=== PATIENT | male | born 1970 | race Caucasian/White ===

== ENCOUNTER 2019-02-17 13:34 | Inpatient (IN) | payer OTHER ==
[2019-02-17 15:50] VITALS: BMI 36.9
--- NOTE | 2019-02-17 16:24 | HP ---
COWS - Scale Resting Pulse: 1= [place] 81-100 Sweatin= Chills/Flushing Restless Observation: 1= Difficult to Sit Still Pupil Size: 1= Pupils >than Normal Bone or Joint Aches: 2= Severe Diffuse Aches Runny Nose/ Eye Tearin= Runny Nose/Eyes GI Upset > 30mins: 2= Nausea/Diarrhea Tremor Observation: 2= Slight Tremor Visible Yawning Observation: 2= >3x During Session Anxiety or Irritability: 2=Irritable/Anxious Goose Flesh Skin: 0=Smooth Skin COWS Score: 16 CIWA Score - Admission Criteria OASAS Guidelines: Admission for Medically Managed Detox: Requires at least one of the followin. CIWA greater than 12 2. Seizures within the past 24 hours 3. Delirium tremens within the past 24 hours 4. Hallucinations within the past 24 hours 5. Acute intervention needed for co occurring medical disorder 6. Acute intervention needed for co occurring psychiatric disorder 7. Severe withdrawal that cannot be handled at a lower level of care (continued vomiting, continued diarrhea, abnormal vital signs) requiring intravenous medication and/or fluids 8. Admission ROS [facility] - [facility] Chief Complaint: i need help to stop using heroin Allergies/Adverse Reactions: Allergies Allergy/AdvReac Type Severity Reaction Status Date / Time No Known Allergies Allergy Verified 02/17/19 15:36 History of Present Illness: this 48 years old male with heroin dependence,seeking detox,withdrawal symptom, last detox in [facility] in 2016 first visit to this facility asthma on albuterol inhaler of albuterol inhaler and symbicort and nebulizer , on prednisone no chest pain longest period of sobriety 10 years Exam Limitations: No Limitations - Ebola screening Have you traveled outside of the country in the last 21 days: No (N) Have you had contact with anyone from an Ebola affected area: No Do you have a fever: No - Review of Systems Constitutional: Chills, Loss of Appetite, Malaise, Night Sweats, Changes in sleep, Weakness EENT: reports: Nose Congestion Respiratory: reports: Other (asthma) Cardiac: reports: No Symptoms Reported GI: reports: Diarrhea, Nausea, Vomiting, Abdominal cramping : reports: No Symptoms Reported Musculoskeletal: reports: Back Pain, Joint Pain, Muscle Pain Integumentary: reports: Dryness Neuro: reports: Headache, Tremors Endocrine: reports: No Symptoms Reported Hematology: reports: No Symptoms Reported Psychiatric: reports: No Sypmtoms Reported, Judgement Intact, Mood/Affect Appropiate, Orientated x3 Other Systems: Reviewed and Negative Patient History - Patient Medical History Hx Anemia: No Hx Asthma: Yes (on albuterol inhaler,symbicort,bebulizer) Hx Chronic Obstructive Pulmonary Disease (COPD): No Hx Cancer: No Hx Cardiac Disorders: No Hx Congestive Heart Failure: No Hx Hypertension: Yes (on med) Hx Hypercholesterolemia: No Hx Pacemaker: No HX Cerebrovascular Accident: No Hx Seizures: No Hx Dementia: No Hx Diabetes: No Hx Gastrointestinal Disorders: No Hx Liver Disease: No Hx Genitourinary Disorders: No Hx Sexually Transmitted Disorders: No Hx Renal Disease (ESRD): No Hx Thyroid Disease: No Hx Human Immunodeficiency Virus (HIV): No (last 12/07 negative) Hx Hepatitis C: No Hx Depression: No Hx Suicide Attempt: No Hx Bipolar Disorder: No Hx Schizophrenia: No Other Medical History: no suicidal,no homicidal - Patient Surgical History Past Surgical History: No - PPD History Previous Implant?: Yes Documented Results: Negative w/o proof Implanted On Prior [facility] Admission?: No PPD to be Administered?: No - Smoking Cessation Smoking history: Never smoked - Substance & Tx. History Hx Alcohol Use: No Hx Substance Use: Yes Substance Use Type: Heroin Hx Substance Use Treatment: Yes ([facility] in 2016) - Substances abused Heroin Substance route: Inhalation Frequency: Daily Amount used: 8-9 BAGS Age of first use: 20 Date of last use: 02/16/19 Admission Physical Exam BHS - Vital Signs Vital Signs: Vital Signs - 24 hr 02/17/19 15:33 Temperature 98.0 F Pulse Rate 90 Respiratory 20 Rate Blood Pressure 160/94 - Physical General Appearance: Yes: Moderate Distress, Tremorous, Irritable, Sweating, Anxious HEENTM: Yes: Normal ENT Inspection, TEODORO, Pharynx Normal Respiratory: Yes: Wheezing Neck: Yes: Within Normal Limits, Supple, Trachea in good position Breast: Yes: Within Normal Limits Cardiology: Yes: Within Normal Limits, Regular Rhythm, Regular Rate, S1, S2 Abdominal: Yes: Normal Bowel Sounds, Non Tender, Soft Genitourinary: Yes: Within Normal Limits Back: Yes: Muscle Spasm Musculoskeletal: Yes: Back pain, Joint Stiffness, Muscle Pain Extremities: Yes: Tremors Neurological: Yes: electrical software engineer II-XII NML intact, Fully Oriented, Alert, Motor Strength 5/5 Integumentary: Yes: Dry Lymphatic: Yes: Within Normal Limits - Diagnostic (1) Opioid dependence with withdrawal Current Visit: Yes Status: Acute (2) Asthma Current Visit: Yes Status: Acute (3) Hypertension Current Visit: Yes Status: Acute Cleared for Admission [facility] - Detox or Rehab [facility] Level of Care: Medically Managed Detox Regimen/Protocol: Methadone Breathalyzer - Breathalyzer Breathalyzer: 0 Urine Drug Screen - Test Device Lot number: [id number] Expiration date: 10/19/20 - Control Is test valid?: Yes - Results Drug screen NEGATIVE: Yes Urine drug screen results: FEN-Fentanyl, MOP-Opiates Inpatient Rehab Admission - Rehab Decision to Admit Inpatient rehab admission?: No
[2019-02-17] MEDS ORDERED: MENTHOL/PHENOL 1 EACH UD MM PRN (16:35)
[2019-02-17] MEDS ORDERED: ACETAMINOPHEN 325 MG TABLET (FP) PO PRN ×2 (16:35)
[2019-02-17] MEDS ORDERED: IBUPROFEN 400 MG TABLET (FP) PO PRN (16:35)
[2019-02-17] MEDS ORDERED: MAGNESIUM HYDROX 2400MG/30ML ORAL SUSPENSION 30 ML CUP PO PRN (16:35)
[2019-02-17] MEDS ORDERED: hydrOXYzine PAMOATE 25 MG CAPSULE (FP) PO PRN (16:35)
[2019-02-17] MEDS ORDERED: MAG HYDROX/AL HYDROX/SIMETH 30 ML UNIT-DOSE CUP PO PRN (16:35)
[2019-02-17] MEDS ORDERED: MELATONIN 5 MG TABLETS PO PRN (16:35)
[2019-02-17] MEDS ORDERED: MAGNESIUM CITRATE 300 ML BOTTLE PO PRN (16:35)
[2019-02-17] MEDS ORDERED: cloNIDine HCL 0.1 MG TABLET PO PRN (16:35)
[2019-02-17] MEDS ORDERED: BISMUTH SUBSALICYLATE 524 MG/30 ML UD PO PRN (16:35)
[2019-02-17] MEDS ORDERED: ALBUTEROL SO4 2.5/IPRATROPIUM 0.5 INH SOL 3 ML VIAL.NEB. NEB PRN (16:43)
[2019-02-17] MEDS ORDERED: CARVEDILOL 6.25 MG TABLET (FP) PO SCH (16:45)
[2019-02-17] MEDS ORDERED: predniSONE 20 MG TABLET (UD) PO ONE (17:00)
[2019-02-17] MEDS ORDERED: METHADONE HCL 10 MG TABLET (FOR DETOX USE ONLY) PO ONE (17:05)
[2019-02-17] MEDS: DOCUSATE SODIUM 100 MG CAPSULE (FP) PO SCH (22:07)
[2019-02-17] MEDS: BUDESONIDE/FORMETEROL FUMARATE 160/4.5 mcg INHALER IH SCH (22:07)
[2019-02-17] MEDS: THIAMINE HCL 100 MG TABLET (FP) PO SCH (22:07)
[2019-02-17] MEDS: MONTELUKAST NA 10 MG TABLET PO SCH (22:07)
[2019-02-17] MEDS: CARVEDILOL 3.125 MG TABLET (FP) PO SCH (22:07)
[2019-02-18] MEDS: ALBUTEROL SO4 8 GM HFA INHALER IH PRN ×2 (00:34→05:25)
[2019-02-18] MEDS ORDERED: METHADONE HCL 5 MG TABLET (FOR DETOX USE ONLY) ONE (08:17)
[2019-02-18] MEDS ORDERED: METHADONE HCL 10 MG TABLET (FOR DETOX USE ONLY) ONE (08:17)
[2019-02-18] MEDS: PRENATAL VITAMINS W/ FOLIC ACID TABLET (FP) PO SCH (09:34)
[2019-02-18] MEDS: RANITIDINE HCL 150 MG TABLET (FP) PO SCH (09:34)
[2019-02-18] MEDS: LISINOPRIL 10 MG TABLET (FP) PO SCH (09:34)
[2019-02-18] MEDS: ASPIRIN COATED 81 MG TABLET.EC PO SCH (09:34)
[2019-02-18] MEDS: FUROSEMIDE 20 MG TABLET (FP) PO SCH (09:34)
[2019-02-18] MEDS: DOCUSATE SODIUM 100 MG CAPSULE (FP) PO SCH ×2 (09:34→23:28)
[2019-02-18] MEDS ORDERED: predniSONE 20 MG TABLET (UD) PO ONE (10:00)
[2019-02-18] MEDS ORDERED: METHADONE (DETOX) 20 MG, METHADONE (DETOX) 5 MG PO ONE (10:00)
[2019-02-18] MEDS: CARVEDILOL 3.125 MG TABLET (FP) PO SCH (10:07)
[2019-02-18] MEDS: BUDESONIDE/FORMETEROL FUMARATE 160/4.5 mcg INHALER IH SCH ×2 (10:07→23:29)
--- NOTE | 2019-02-18 11:35 | PN ---
BHS COWS - Scale Resting Pulse: 1= [place] 81-100 Sweatin= Chills/Flushing Restless Observation: 0= Sits Still Pupil Size: 1= Pupils >than Normal Bone or Joint Aches: 1= Mild Discomfort Runny Nose/ Eye Tearin= None GI Upset > 30mins: 1= Stomach Cramp Tremor Observation of Outstretched Hands: 2= Slight Tremor Visible Yawning Observation: 1= 1-2x During Session Anxiety or Irritability: 2=Irritable/Anxious Goose Flesh Skin: 3=Piloerection COWS Score: 13 BHS Progress Note (SOAP) Subjective: doing well with methadone detox regimen ambulating on hallway social with peers ate breakfast tolerate food and fluid well Objective: 02/18/19 11:34 Vital Signs Temperature 96.8 F L 02/18/19 09:02 Pulse Rate 81 02/18/19 09:02 Respiratory Rate 20 02/18/19 09:02 Blood Pressure 129/80 02/18/19 09:02 O2 Sat by Pulse Oximetry (%) 97 02/17/19 21:12 lab pending Assessment: 02/18/19 11:34 opiate withdrawal sx discuss medication assisted treatment program picker and packer narcan from pharmacy Plan: continue methadone detox regimen
[2019-02-18 11:49] LABS: HEMATOCRIT 37.4 % (35.4-49); HEMOGLOBIN 12.4 GM/dL (11.7-16.9); MCH 31.4 pg (25.7-33.7); MCHC 33.1 g/dl (32.0-35.9); MEAN PLT VOLUME 12.5 fl (7.5-11.1); PLATELET COUNT 206 K/MM3 (134-434); RBC 3.94 M/mm3 (4.00-5.60); RDW 13.3 % (11.9-15.9)
[2019-02-18 12:27] LABS: ALBUMIN 3.4 g/dl (3.4-5.0); BILIRUBIN,TOTAL 0.3 mg/dL (0.2-1); BLOOD UREA NITROGEN 20.4 mg/dL (7-18); CALCIUM 8.8 mg/dL (8.5-10.1); CREATININE 0.9 mg/dL (0.55-1.3); TOT PROT 6.4 g/dl (6.4-8.2)
--- NOTE | 2019-02-18 13:25 | EKG ---
Test Reason : Blood Pressure : / mmHG Vent. Rate : 080 BPM Atrial Rate : 080 BPM P-R Int : 152 ms QRS Dur : 084 ms QT Int : 374 ms P-R-T Axes : 023 005 003 degrees QTc Int : 431 ms NORMAL SINUS RHYTHM MINIMAL VOLTAGE CRITERIA FOR LVH, MAY BE NORMAL VARIANT BORDERLINE ECG NO PREVIOUS ECGS AVAILABLE Confirmed by SHREYA VILLARREAL MD ([id number]) on 02/18/2019 1:25:14 PM Referred By: Confirmed By:SHREYA VILLARREAL MD
[2019-02-18] MEDS: CARVEDILOL 6.25 MG TABLET (FP) PO SCH (23:29)
[2019-02-18] MEDS: THIAMINE HCL 100 MG TABLET (FP) PO SCH (23:29)
[2019-02-18] MEDS: MONTELUKAST NA 10 MG TABLET PO SCH (23:29)
[2019-02-19] MEDS ORDERED: METHADONE HCL 10 MG TABLET (FOR DETOX USE ONLY) PO ONE (10:00)
[2019-02-19] MEDS ORDERED: predniSONE 20 MG TABLET (UD) PO ONE (10:00)
[2019-02-19] MEDS: BUDESONIDE/FORMETEROL FUMARATE 160/4.5 mcg INHALER IH SCH ×2 (10:02→22:20)
[2019-02-19] MEDS: CARVEDILOL 6.25 MG TABLET (FP) PO SCH ×2 (10:03→22:21)
[2019-02-19] MEDS: DOCUSATE SODIUM 100 MG CAPSULE (FP) PO SCH ×2 (10:03→22:21)
[2019-02-19] MEDS: RANITIDINE HCL 150 MG TABLET (FP) PO SCH (10:03)
[2019-02-19] MEDS: FUROSEMIDE 20 MG TABLET (FP) PO SCH (10:03)
[2019-02-19] MEDS: LISINOPRIL 10 MG TABLET (FP) PO SCH (10:03)
[2019-02-19] MEDS: PRENATAL VITAMINS W/ FOLIC ACID TABLET (FP) PO SCH (10:03)
[2019-02-19] MEDS: ASPIRIN COATED 81 MG TABLET.EC PO SCH (10:03)
--- NOTE | 2019-02-19 15:50 | PN ---
S COWS - Scale Resting Pulse: 0= [place] 80 or Below Sweatin= No chills or Flushing Restless Observation: 1= Difficult to Sit Still Pupil Size: 0= Normal to Room Light Bone or Joint Aches: 2= Severe Diffuse Aches Runny Nose/ Eye Tearin= None GI Upset > 30mins: 0= None Tremor Observation of Outstretched Hands: 0= None Yawning Observation: 1= 1-2x During Session Anxiety or Irritability: 2=Irritable/Anxious Goose Flesh Skin: 3=Piloerection COWS Score: 9 BHS Progress Note (SOAP) Subjective: Anxious, Restless, Body Aches. Objective: PATIENT A & O X 3, OBSERVED AMBULATING ON DETOX UNIT UNASSISTED. IN NO ACUTE DISTRESS. 02/19/19 15:40 Vital Signs Temperature 97.1 F L 02/19/19 13:21 Pulse Rate 65 02/19/19 13:21 Respiratory Rate 18 02/19/19 13:21 Blood Pressure 135/84 02/19/19 13:21 O2 Sat by Pulse Oximetry (%) 97 02/17/19 21:12 Laboratory Tests 02/18/19 02/18/19 02/18/19 08:50 08:50 08:50 WBC 10.0 RBC 3.94 L Hgb 12.4 Hct 37.4 MCV 95.0 MCH 31.4 MCHC 33.1 RDW 13.3 Plt Count 206 MPV 12.5 H Sodium 142 Potassium 4.0 Chloride 103 Carbon Dioxide 33 H Anion Gap 6 L BUN 20.4 H Creatinine 0.9 Est GFR (CKD-EPI)AfAm 117.47 Est GFR (CKD-EPI)NonAf 101.35 Random Glucose 85 Calcium 8.8 Total Bilirubin 0.3 AST 12 L ALT 35 Alkaline Phosphatase 88 Total Protein 6.4 Albumin 3.4 RPR Titer Nonreactive LABS NOTED. RESULTS OF DETOX ADMISSION QFT /TB TEST PENDING. 02/19/19 15:41 Assessment: 02/19/19 15:41 WITHDRAWAL SYMPTOMS. Plan: CONTINUE DETOX. PATIENT REPORTS SWELLING IN BILATERAL LEGS AND FEET FOR THE LAST APPROX. 2 DAYS. PATIENT REPORTS INTERMITTENT DISCOMFORT DISCOMFORT IN BILATERAL LOWER LEGS AND FEET. PATIENT DENIES HISTORY OF I.V.D.U. IN LOWER LEGS AND FEET. PATIENT REPORTS THAT SAME CONDITION OCCURRED RECENTLY AND THAT HE WAS EVALUATED FOR IT AT ER. PATIENT REPORTS HISTORY OF HTN, BUT DENIES KNOWN HISTORY OF ANY OTHER CARDIOVASCULAR DISORDER. SWELLING (PITTING) NOTED IN BILATERAL LOWER LEGS AND FEET. NO ERYTHEMA OR WOUNDS NOTED IN BILATERAL LEGS / FEET. PATIENT ADVISED TO TRY TO STAY OFF OF FEET AND TO KEEP LEGS AND FEET ELEVATED IN BED MUCH POSSIBLE FOR TIME BEING AND TO FOLLOW-UP WITH CHEF HEAD FOR FURTHER MEDICAL EVALUATION IF CONDITION PERSISTS AFTER DISCHARGE FROM DETOX UNIT. PATIENT VERBALIZED UNDERSTANDING OF RECOMMENDATION. PATIENT CURRENTLY PRESCRIBED LASIX, 20 MG PO DAILY WHILE ADMITTED ON DETOX UNIT.
[2019-02-19] MEDS: THIAMINE HCL 100 MG TABLET (FP) PO SCH (22:21)
[2019-02-19] MEDS: METHOCARBAMOL 500 MG TABLET PO PRN (22:21)
[2019-02-19] MEDS: MONTELUKAST NA 10 MG TABLET PO SCH (22:21)
[2019-02-20 09:08] VITALS: BP 95/68; PULSE 64; TEMP 96.8
[2019-02-20] MEDS ORDERED: METHADONE HCL 10 MG TABLET (FOR DETOX USE ONLY) ONE (09:51)
[2019-02-20] MEDS ORDERED: METHADONE HCL 5 MG TABLET (FOR DETOX USE ONLY) ONE (09:52)
[2019-02-20] MEDS ORDERED: predniSONE 20 MG TABLET (UD) PO ONE (10:00)
[2019-02-20] MEDS ORDERED: METHADONE (DETOX) 10 MG, METHADONE (DETOX) 5 MG PO ONE (10:00)
[2019-02-20] MEDS: CARVEDILOL 6.25 MG TABLET (FP) PO SCH (10:08)
[2019-02-20] MEDS: PRENATAL VITAMINS W/ FOLIC ACID TABLET (FP) PO SCH (10:09)
[2019-02-20] MEDS: METHOCARBAMOL 500 MG TABLET PO PRN (10:09)
[2019-02-20] MEDS: DOCUSATE SODIUM 100 MG CAPSULE (FP) PO SCH (10:09)
[2019-02-20] MEDS: LISINOPRIL 10 MG TABLET (FP) PO SCH (10:09)
[2019-02-20] MEDS: BUDESONIDE/FORMETEROL FUMARATE 160/4.5 mcg INHALER IH SCH (10:09)
[2019-02-20] MEDS: FUROSEMIDE 20 MG TABLET (FP) PO SCH (10:09)
[2019-02-20] MEDS: ASPIRIN COATED 81 MG TABLET.EC PO SCH (10:10)
[2019-02-20] MEDS: RANITIDINE HCL 150 MG TABLET (FP) PO SCH (10:11)
--- NOTE | 2019-02-20 16:12 | DS ---
[facility] Detox Discharge Summary Admission Date: 02/17/19 - History Present History: Opioid Dependence Additional Comments: DESPITE EFFORTS BY CLEANER TOUCH UP WORKER AND BY NURSING STAFF TO ADDRESS PATIENT'S MEDICAL NEEDS / CONCERNS, PATIENT DOES NOT WISH TO REMAIN TO COMPLETE DETOX REGIMEN. RISKS OF LEAVING DETOX UNIT AGAINST MEDICAL ADVICE AND PRIOR TO COMPLETION OF DETOX REGIMEN EXPLAINED TO PATIENT. PATIENT ADVISED TO GO IMMEDIATELY TO NEAREST ER SHOULD ANY INTOLERABLE WITHDRAWAL / DETOX SYMPTOMS DEVELOP AT ANY TIME. PATIENT AGAIN ADVISED TO FOLLOW-UP WITH SPORTS EQUIPMENT REPAIRER SOON POSSIBLE FOR FURTHER EVALUATION OF SWELLING AND DISCOMFORT IN BILATERAL LEGS AND FEET. PATIENT VERBALIZED UNDERSTANDING OF ALL INFORMATION / RECOMMENDATIONS PRESENTED TO HIM PRIOR TO DEPARTURE FROM DETOX UNIT AND NOTED THAT HE INTENDED TO MAKE APPOINTMENT TO SEE HIS SPORTS EQUIPMENT REPAIRER IN THE NEXT FEW DAYS. PATIENT DECLINED OFFER OF MEDICATION PRESCRIPTION FOR HOME MEDICATION AT TIME OF DISCHARGE FROM DETOX, NOTING THAT HE CURRENTLY HAS ADEQUATE SUPPLIES OF ALL PRESCRIBED HOME MEDICATIONS AT HOME. Pertinent Past History: Asthma, HTN. - Physical Exam Results Vital Signs: Vital Signs Temperature 96.8 F L 02/20/19 09:07 Pulse Rate 64 02/20/19 09:07 Respiratory Rate 18 02/20/19 09:07 Blood Pressure 95/68 02/20/19 09:07 O2 Sat by Pulse Oximetry (%) 97 02/17/19 21:12 Pertinent Admission Physical Exam Findings: WITHDRAWAL SYMPTOMS. Laboratory Tests 02/18/19 02/18/19 02/18/19 08:45 08:50 08:50 WBC 10.0 RBC 3.94 L Hgb 12.4 Hct 37.4 MCV 95.0 MCH 31.4 MCHC 33.1 RDW 13.3 Plt Count 206 MPV 12.5 H Sodium 142 Potassium 4.0 Chloride 103 Carbon Dioxide 33 H Anion Gap 6 L BUN 20.4 H Creatinine 0.9 Est GFR (CKD-EPI)AfAm 117.47 Est GFR (CKD-EPI)NonAf 101.35 Random Glucose 85 Calcium 8.8 Total Bilirubin 0.3 AST 12 L ALT 35 Alkaline Phosphatase 88 Total Protein 6.4 Albumin 3.4 RPR Titer TB (QFT) Incubation TB Test (QFT) Nil 0.02 TB Test (QFT) Mitogen >10.00 TB Test (QFT) Antigen 0.02 TB Test (QFT) Negative TB Positive Criteria 02/18/19 08:50 WBC RBC Hgb Hct MCV MCH MCHC RDW Plt Count MPV Sodium Potassium Chloride Carbon Dioxide Anion Gap BUN Creatinine Est GFR (CKD-EPI)AfAm Est GFR (CKD-EPI)NonAf Random Glucose Calcium Total Bilirubin AST ALT Alkaline Phosphatase Total Protein Albumin RPR Titer Nonreactive TB (QFT) Incubation TB Test (QFT) Nil TB Test (QFT) Mitogen TB Test (QFT) Antigen TB Test (QFT) TB Positive Criteria LABS NOTED. - Medication Discharge Medications: Ambulatory Orders Albuterol Sulfate Inhaler - [Ventolin HFA Inhaler -] 1 - 2 inh PO Q4H 02/17/19 Aspirin [Aspirin EC] 81 mg PO DAILY 02/17/19 Carvedilol [Coreg -] 6.25 mg PO Q12H 02/17/19 Docusate Sodium 100 mg PO BID 02/17/19 Furosemide 20 mg PO DAILY 02/17/19 Lisinopril 10 mg PO DAILY 02/17/19 Loratadine 10 mg PO DAILY 02/17/19 Montelukast Sodium [Singulair] 10 mg PO HS 02/17/19 Prednisone [Deltasone] 40 mg PO DAILY PRN 02/17/19 Ranitidine [Zantac -] 150 mg PO DAILY 02/17/19 Naloxone HCl [Narcan] 4 mg NS ASDIR PRN #1 spray 02/18/19 - Diagnosis (1) Asthma Status: Acute Qualifiers: Asthma severity: unspecified severity Asthma persistence: unspecified Asthma complication type: uncomplicated Qualified Code(s): J45.909 - Unspecified asthma, uncomplicated (2) Hypertension Status: Acute Qualifiers: Hypertension type: unspecified Qualified Code(s): I10 - Essential (primary ) hypertension (3) Opioid dependence with withdrawal Status: Acute - AMA Did Patient Leave Against Medical Advice: Yes (PATIENT DID NOT WISH TO REMAIN TO OCMPLETE DETOX REGIMEN.) BHS COWS - Scale Resting Pulse: 0= [place] 80 or Below Sweatin= Chills/Flushing Restless Observation: 1= Difficult to Sit Still Pupil Size: 0= Normal to Room Light Bone or Joint Aches: 2= Severe Diffuse Aches Runny Nose/ Eye Tearin= Runny Nose/Eyes GI Upset > 30mins: 0= None Tremor Observation of Outstretched Hands: 0= None Yawning Observation: 1= 1-2x During Session Anxiety or Irritability: 2=Irritable/Anxious Goose Flesh Skin: 0=Smooth Skin COWS Score: 9
[2019-02-21] MEDS ORDERED: predniSONE 5 MG TABLET (UD) PO ONE (10:00)
[2019-02-21] MEDS ORDERED: METHADONE HCL 10 MG TABLET (FOR DETOX USE ONLY) PO ONE (10:00)
[2019-02-22] MEDS ORDERED: METHADONE HCL 5 MG TABLET (FOR DETOX USE ONLY) PO ONE (06:00)
== END 2019-02-20 12:02 | disposition left against medical advice (07) | DRG 770 ==
LOC: YASAS 13:34 → Y3N 16:59
PROVIDERS: ADMIT Surgery; ATTEND Surgery
PROC: HZ2ZZZZ Detoxification Services for Substance Abuse Treatment (ICD-10-PCS; principal; 2019-02-17)
DX: F11.23 Opioid dependence with withdrawal (principal); I10 Essential (primary) hypertension; J45.909 Unspecified asthma, uncomplicated
CPT/HCPCS: 36415; 80053; 85027; 86480; 86593; 93005; 93010; 94640; J0735

== ENCOUNTER 2019-02-25 12:46 | Inpatient (IN) | payer OTHER ==
[2019-02-25 15:15] VITALS: BMI 36.9
--- NOTE | 2019-02-25 16:04 | HP ---
COWS - Scale Resting Pulse: 1= [place] 81-100 Sweatin= Chills/Flushing Restless Observation: 1= Difficult to Sit Still Pupil Size: 1= Pupils >than Normal Bone or Joint Aches: 1= Mild Discomfort Runny Nose/ Eye Tearin= Runny Nose/Eyes GI Upset > 30mins: 2= Nausea/Diarrhea Tremor Observation: 2= Slight Tremor Visible Yawning Observation: 1= 1-2x During Session Anxiety or Irritability: 1=Feels Anxious/Irritable Goose Flesh Skin: 0=Smooth Skin COWS Score: 13 (recent use) CIWA Score - Admission Criteria OASAS Guidelines: Admission for Medically Managed Detox: Requires at least one of the followin. CIWA greater than 12 2. Seizures within the past 24 hours 3. Delirium tremens within the past 24 hours 4. Hallucinations within the past 24 hours 5. Acute intervention needed for co occurring medical disorder 6. Acute intervention needed for co occurring psychiatric disorder 7. Severe withdrawal that cannot be handled at a lower level of care (continued vomiting, continued diarrhea, abnormal vital signs) requiring intravenous medication and/or fluids 8. Admitting History and Physical - Smoking History Smoking history: Never smoked Have you smoked in the past 12 months: No - Alcohol/Substance Use Hx Alcohol Use: No Admission ROS [facility] - [facility] Chief Complaint: Shun Vazquez is a 48 year old male presenting for heroin abuse. Allergies/Adverse Reactions: Allergies Allergy/AdvReac Type Severity Reaction Status Date / Time No Known Allergies Allergy Verified 02/25/19 15:01 History of Present Illness: Shun Vazquez is a 48 year old male presenting for heroin abuse. Heroin: 10 bags daily. Last use was several hour prior to interview. Has been using for a year. Previously had been off drugs for 12 years, started using again due to deaths in the family. Denies IVDU. Denies overdose. has Narcan at home. Gets heroin only from one dealer. Withdrawal symptoms: nausea, vomiting, tremors, palpitations, diarrhea Denies other drug use. has taken methadone previously when he was at this facility. has been to detox in the past but had to leave due to a family emergency. Currently interested in rehab. Has been to NA programs in the past and stated that had been helpful for him. Patient is interested in starting a suboxone program. Medical History: HTN, asthma, LBBB, GERD, COPD Surgical History: coronary angiogram Psychiatric History: denies Smoking: former smoker, quit many years ago Social: lives with and children. Gets money through a program to pay for his drugs. Previous EKG here showing LVH, no LBBB. Previous Quantiferon here negative. - Ebola screening Have you traveled outside of the country in the last 21 days: No Have you had contact with anyone from an Ebola affected area: No Do you have a fever: No - Review of Systems Constitutional: Chills EENT: reports: Nose Congestion Respiratory: reports: No Symptoms reported Cardiac: reports: No Symptoms Reported GI: reports: No Symptoms Reported : reports: No Symptoms Reported Musculoskeletal: reports: Back Pain Integumentary: reports: No Symptoms Reported Neuro: reports: No Symptoms reported Endocrine: reports: No Symptoms Reported Hematology: reports: No Symptoms Reported Psychiatric: reports: Orientated x3, Anxious Patient History - Patient Medical History Hx Anemia: No Hx Asthma: Yes (on albuterol inhaler,symbicort,bebulizer) Hx Chronic Obstructive Pulmonary Disease (COPD): No Hx Cancer: No Hx Cardiac Disorders: No Hx Congestive Heart Failure: No Hx Hypertension: Yes (on med) Hx Hypercholesterolemia: No Hx Pacemaker: No HX Cerebrovascular Accident: No Hx Seizures: No Hx Dementia: No Hx Diabetes: No Hx Gastrointestinal Disorders: No Hx Liver Disease: No Hx Genitourinary Disorders: No Hx Sexually Transmitted Disorders: No Hx Renal Disease (ESRD): No Hx Thyroid Disease: No Hx Human Immunodeficiency Virus (HIV): No (last 12/07 negative) Hx Hepatitis C: No Hx Depression: No Hx Suicide Attempt: No Hx Bipolar Disorder: No Hx Schizophrenia: No - Patient Surgical History Past Surgical History: No Hx Neurologic Surgery: No Hx Cataract Extraction: No Hx Cardiac Surgery: No Hx Lung Surgery: No Hx Breast Surgery: No Hx Breast Biopsy: No Hx Abdominal Surgery: No Hx Appendectomy: No Hx Cholecystectomy: No Hx Genitourinary Surgery: No Hx Section: No Hx Orthopedic Surgery: No Anesthesia Reaction: No - PPD History Previous Implant?: Yes Documented Results: Negative w/o proof Implanted On Prior R Admission?: No Date: 02/17/19 (negative quantiferon) PPD to be Administered?: No - Smoking Cessation Smoking history: Never smoked Have you smoked in the past 12 months: No Hx Chewing Tobacco Use: No - Substances abused Heroin Substance route: Inhalation Frequency: Daily Amount used: 10 BAGS Age of first use: 20 Date of last use: 02/25/19 Admission Physical Exam [facility] - Vital Signs Vital Signs: Vital Signs - 24 hr 02/25/19 14:57 Temperature 97.4 F L Pulse Rate 86 Respiratory 18 Rate Blood Pressure 150/81 - Physical General Appearance: Yes: Appropriately Dressed, Mild Distress HEENTM: Yes: EOMI, Normocephalic, Normal Voice, TEODORO, Pharynx Normal Respiratory: Yes: Chest Non-Tender, Lungs Clear, Normal Breath Sounds, No Respiratory Distress, No Accessory Muscle Use Neck: Yes: No masses,lesions,Nodules, Trachea in good position Breast: Yes: Breast Exam Deferred Cardiology: Yes: Regular Rhythm, Regular Rate, S1, S2 Abdominal: Yes: Normal Bowel Sounds, Non Tender, Soft, Other (obese) Genitourinary: Yes: Within Normal Limits Back: Yes: Normal Inspection Musculoskeletal: Yes: Back pain Extremities: Yes: Normal Capillary Refill, Normal Range of Motion, Non-Tender, Other (noted boil on L axilla, with no expression of fluid) Neurological: Yes: hand stamper II-XII NML intact, Fully Oriented, Alert, Motor Strength 5/5, Normal Mood/Affect Integumentary: Yes: Normal Color, Dry, Warm - Diagnostic (1) Asthma Current Visit: No Status: Acute Qualifiers: Asthma severity: unspecified severity Asthma persistence: unspecified Asthma complication type: uncomplicated Qualified Code(s): J45.909 - Unspecified asthma, uncomplicated (2) Hypertension Current Visit: No Status: Acute Qualifiers: Hypertension type: unspecified Qualified Code(s): I10 - Essential (primary ) hypertension (3) Opioid dependence with withdrawal Current Visit: No Status: Acute (4) GERD (gastroesophageal reflux disease) Current Visit: Yes Status: Acute Cleared for Admission S - Detox or Rehab [facility] Level of Care: Medically Managed Detox Regimen/Protocol: Methadone Breathalyzer - Breathalyzer Breathalyzer: 0 Urine Drug Screen - Test Device Lot number: [id number] Expiration date: 10/19/20 - Control Is test valid?: Yes - Results Drug screen NEGATIVE: No Urine drug screen results: FEN-Fentanyl, MOP-Opiates, OXY-Oxycodone, MTD- Methadone Inpatient Rehab Admission - Rehab Decision to Admit Inpatient rehab admission?: No
[2019-02-25] MEDS ORDERED: cloNIDine HCL 0.1 MG TABLET PO PRN (16:33)
[2019-02-25] MEDS ORDERED: MAGNESIUM CITRATE 300 ML BOTTLE PO PRN (16:36)
[2019-02-25] MEDS ORDERED: MAG HYDROX/AL HYDROX/SIMETH 30 ML UNIT-DOSE CUP PO PRN (16:36)
[2019-02-25] MEDS ORDERED: IBUPROFEN 400 MG TABLET (FP) PO PRN (16:36)
[2019-02-25] MEDS ORDERED: MENTHOL/PHENOL 1 EACH UD MM PRN (16:36)
[2019-02-25] MEDS ORDERED: hydrOXYzine PAMOATE 25 MG CAPSULE (FP) PO PRN (16:36)
[2019-02-25] MEDS ORDERED: MELATONIN 5 MG TABLETS PO PRN (16:36)
[2019-02-25] MEDS ORDERED: BISMUTH SUBSALICYLATE 524 MG/30 ML UD PO PRN (16:36)
[2019-02-25] MEDS ORDERED: ACETAMINOPHEN 325 MG TABLET (FP) PO PRN ×2 (16:36)
--- NOTE | 2019-02-25 17:19 | PN ---
Teaching Attending Note Name of Resident: Héctor Tapia ATTENDING PHYSICIAN STATEMENT I saw and evaluated the patient. I reviewed the resident's note and discussed the case with the resident. I agree with the resident's findings and plan as documented. SUBJECTIVE: 48 yo with HTN, asthma, COPD here for heroin detox. Left detox on . OBJECTIVE: Vital Signs - 24 hr 02/25/19 14:57 Temperature 97.4 F L Pulse Rate 86 Respiratory 18 Rate Blood Pressure 150/81 tremulous alert and oriented ASSESSMENT AND PLAN: Heroin- admit for detox, pt was in a MAT methadone program- left b/c of side effects, will consider Suboxone
[2019-02-25] MEDS ORDERED: METHADONE HCL 10 MG TABLET (FOR DETOX USE ONLY) PO ONE (17:25)
[2019-02-25] MEDS: ALBUTEROL SO4 8 GM HFA INHALER IH PRN (19:43)
[2019-02-25] MEDS: MONTELUKAST NA 10 MG TABLET PO SCH (22:07)
[2019-02-25] MEDS: THIAMINE HCL 100 MG TABLET (FP) PO SCH (22:07)
[2019-02-25] MEDS: CARVEDILOL 3.125 MG TABLET (FP) PO SCH (22:08)
[2019-02-26] MEDS: ALBUTEROL SO4 8 GM HFA INHALER IH PRN (00:56)
[2019-02-26] MEDS ORDERED: METHADONE HCL 5 MG TABLET (FOR DETOX USE ONLY) ONE (08:51)
[2019-02-26] MEDS ORDERED: METHADONE HCL 10 MG TABLET (FOR DETOX USE ONLY) ONE (08:51)
[2019-02-26] MEDS ORDERED: METHADONE (DETOX) 20 MG, METHADONE (DETOX) 5 MG PO ONE (10:00)
[2019-02-26] MEDS: CARVEDILOL 3.125 MG TABLET (FP) PO SCH ×2 (10:17→22:28)
[2019-02-26] MEDS: ASPIRIN COATED 81 MG TABLET.EC PO SCH (10:17)
[2019-02-26] MEDS: FUROSEMIDE 40 MG TABLET (FP) PO SCH (10:17)
[2019-02-26] MEDS: PRENATAL VITAMINS W/ FOLIC ACID TABLET (FP) PO SCH (10:17)
[2019-02-26] MEDS: LISINOPRIL 10 MG TABLET (FP) PO SCH (10:17)
[2019-02-26] MEDS: LORATADINE 10 MG TABLET PO SCH (10:17)
[2019-02-26] MEDS: RANITIDINE HCL 150 MG TABLET (FP) PO SCH (10:17)
--- NOTE | 2019-02-26 13:25 | PN ---
BHS COWS - Scale Resting Pulse: 0= [place] 80 or Below Sweatin= Chills/Flushing Restless Observation: 1= Difficult to Sit Still Pupil Size: 0= Normal to Room Light Bone or Joint Aches: 2= Severe Diffuse Aches Runny Nose/ Eye Tearin= Runny Nose/Eyes GI Upset > 30mins: 1= Stomach Cramp Tremor Observation of Outstretched Hands: 2= Slight Tremor Visible Yawning Observation: 2= >3x During Session Anxiety or Irritability: 2=Irritable/Anxious Goose Flesh Skin: 0=Smooth Skin COWS Score: 13 BHS Progress Note (SOAP) Subjective: stomach cramping nausea sweats shakes interrupted sleep Objective: 02/26/19 13:24 Vital Signs Temperature 97.7 F 02/26/19 09:14 Pulse Rate 71 02/26/19 09:14 Respiratory Rate 18 02/26/19 09:14 Blood Pressure 123/61 02/26/19 09:14 O2 Sat by Pulse Oximetry (%) labs pending aaox3 ambulating no acute distress Assessment: 02/26/19 13:25 withdrawals sx Plan: continue detox increase fluids pending labs
[2019-02-26] MEDS: THIAMINE HCL 100 MG TABLET (FP) PO SCH (22:28)
[2019-02-26] MEDS: MONTELUKAST NA 10 MG TABLET PO SCH (22:28)
[2019-02-27] MEDS ORDERED: METHADONE HCL 10 MG TABLET (FOR DETOX USE ONLY) PO ONE (10:00)
[2019-02-27] MEDS: RANITIDINE HCL 150 MG TABLET (FP) PO SCH (10:07)
[2019-02-27] MEDS: ASPIRIN COATED 81 MG TABLET.EC PO SCH (10:07)
[2019-02-27] MEDS: LISINOPRIL 10 MG TABLET (FP) PO SCH (10:07)
[2019-02-27] MEDS: FUROSEMIDE 40 MG TABLET (FP) PO SCH (10:07)
[2019-02-27] MEDS: PRENATAL VITAMINS W/ FOLIC ACID TABLET (FP) PO SCH (10:07)
[2019-02-27] MEDS: CARVEDILOL 3.125 MG TABLET (FP) PO SCH ×2 (10:07→22:04)
[2019-02-27] MEDS: LORATADINE 10 MG TABLET PO SCH (10:07)
[2019-02-27] MEDS: MAGNESIUM HYDROX 2400MG/30ML ORAL SUSPENSION 30 ML CUP PO PRN (10:10)
[2019-02-27] MEDS: ALBUTEROL SO4 8 GM HFA INHALER IH PRN ×2 (10:54→22:04)
--- NOTE | 2019-02-27 13:16 | PN ---
BHS COWS - Scale Resting Pulse: 0= [place] 80 or Below Sweatin= Chills/Flushing Restless Observation: 1= Difficult to Sit Still Pupil Size: 0= Normal to Room Light Bone or Joint Aches: 2= Severe Diffuse Aches Runny Nose/ Eye Tearin= Nasal Congestion GI Upset > 30mins: 0= None Tremor Observation of Outstretched Hands: 2= Slight Tremor Visible Yawning Observation: 2= >3x During Session Anxiety or Irritability: 1=Feels Anxious/Irritable Goose Flesh Skin: 0=Smooth Skin COWS Score: 10 BHS Progress Note (SOAP) Subjective: sweats shakes body aches interrupted sleep Objective: 02/27/19 13:17 Vital Signs Temperature 97.5 F L 02/27/19 13:11 Pulse Rate 75 02/27/19 13:11 Respiratory Rate 18 02/27/19 13:11 Blood Pressure 136/78 02/27/19 13:11 O2 Sat by Pulse Oximetry (%) labs noted from his previous recent visit to detox. labs WNL. Assessment: 02/27/19 13:18 withdrawals sx Plan: continue detox increase fluids
[2019-02-27] MEDS: THIAMINE HCL 100 MG TABLET (FP) PO SCH (22:04)
[2019-02-27] MEDS: MONTELUKAST NA 10 MG TABLET PO SCH (22:04)
[2019-02-28] MEDS ORDERED: METHADONE HCL 5 MG TABLET (FOR DETOX USE ONLY) ONE (09:25)
[2019-02-28] MEDS ORDERED: METHADONE HCL 10 MG TABLET (FOR DETOX USE ONLY) ONE (09:25)
[2019-02-28] MEDS: ASPIRIN COATED 81 MG TABLET.EC PO SCH (09:40)
[2019-02-28] MEDS: PRENATAL VITAMINS W/ FOLIC ACID TABLET (FP) PO SCH (09:40)
[2019-02-28] MEDS: RANITIDINE HCL 150 MG TABLET (FP) PO SCH (09:40)
[2019-02-28] MEDS: FUROSEMIDE 40 MG TABLET (FP) PO SCH (09:40)
[2019-02-28] MEDS: LORATADINE 10 MG TABLET PO SCH (09:40)
[2019-02-28] MEDS: LISINOPRIL 10 MG TABLET (FP) PO SCH (09:40)
[2019-02-28] MEDS: CARVEDILOL 3.125 MG TABLET (FP) PO SCH ×2 (09:41→22:04)
[2019-02-28] MEDS: ALBUTEROL SO4 8 GM HFA INHALER IH PRN ×3 (09:59→22:16)
[2019-02-28] MEDS ORDERED: METHADONE (DETOX) 10 MG, METHADONE (DETOX) 5 MG PO ONE (10:00)
[2019-02-28] MEDS ORDERED: HYDROCORTISONE 1% TOPICAL CREAM 30 GM TUBE TP PRN (12:19)
[2019-02-28] MEDS ORDERED: COLLOIDAL OATMEAL 1 BAR EACH TP PRN (12:19)
--- NOTE | 2019-02-28 12:19 | PN ---
BHS COWS - Scale Resting Pulse: 0= [place] 80 or Below Sweatin= Chills/Flushing Restless Observation: 1= Difficult to Sit Still Pupil Size: 0= Normal to Room Light Bone or Joint Aches: 2= Severe Diffuse Aches Runny Nose/ Eye Tearin= None GI Upset > 30mins: 0= None Tremor Observation of Outstretched Hands: 1= Tremor [place], Not Seen Yawning Observation: 1= 1-2x During Session Anxiety or Irritability: 1=Feels Anxious/Irritable Goose Flesh Skin: 0=Smooth Skin COWS Score: 7 S Progress Note (SOAP) Subjective: dry skin rash underarms sweats agitation Objective: 02/28/19 12:15 Vital Signs Temperature 97.2 F L 02/28/19 09:47 Pulse Rate 72 02/28/19 09:47 Respiratory Rate 18 02/28/19 09:47 Blood Pressure 119/60 02/28/19 09:47 O2 Sat by Pulse Oximetry (%) aaox3 ambulating no acute distress Assessment: 02/28/19 12:15 withdrawals Plan: continue detox increase fluids aveeno soap hydrocortizone cream
[2019-02-28] MEDS: THIAMINE HCL 100 MG TABLET (FP) PO SCH (22:04)
[2019-02-28] MEDS: MONTELUKAST NA 10 MG TABLET PO SCH (22:04)
[2019-03-01] MEDS: ALBUTEROL SO4 8 GM HFA INHALER IH PRN ×5 (05:39→22:07)
[2019-03-01] MEDS ORDERED: FLUTICASONE PROP 0.05% 16 GM NASAL SPRAY NS SCH ×2 (07:00→10:00)
[2019-03-01] MEDS: PRENATAL VITAMINS W/ FOLIC ACID TABLET (FP) PO SCH (09:36)
[2019-03-01] MEDS: CARVEDILOL 3.125 MG TABLET (FP) PO SCH ×2 (09:36→22:06)
[2019-03-01] MEDS: FUROSEMIDE 40 MG TABLET (FP) PO SCH (09:36)
[2019-03-01] MEDS: LISINOPRIL 10 MG TABLET (FP) PO SCH (09:36)
[2019-03-01] MEDS: RANITIDINE HCL 150 MG TABLET (FP) PO SCH (09:36)
[2019-03-01] MEDS: ASPIRIN COATED 81 MG TABLET.EC PO SCH (09:36)
[2019-03-01] MEDS: LORATADINE 10 MG TABLET PO SCH (09:36)
[2019-03-01] MEDS: MAGNESIUM HYDROX 2400MG/30ML ORAL SUSPENSION 30 ML CUP PO PRN (09:39)
[2019-03-01] MEDS ORDERED: METHADONE HCL 10 MG TABLET (FOR DETOX USE ONLY) PO ONE (10:00)
--- NOTE | 2019-03-01 14:13 | PN ---
[facility] COWS - Scale Resting Pulse: 0= HI 80 or Below Sweatin= Chills/Flushing Restless Observation: 1= Difficult to Sit Still Pupil Size: 1= Pupils >than Normal Bone or Joint Aches: 1= Mild Discomfort Runny Nose/ Eye Tearin= Nasal Congestion GI Upset > 30mins: 0= None Tremor Observation of Outstretched Hands: 1= Tremor [place], Not Seen Yawning Observation: 0= None Anxiety or Irritability: 1=Feels Anxious/Irritable Goose Flesh Skin: 0=Smooth Skin COWS Score: 7 [facility] Progress Note (SOAP) Subjective: interrupted sleep, lbp, nasal congestion Objective: 03/01/19 14:10 Vital Signs Temp 98.4 F 03/01/19 13:11 Pulse 61 03/01/19 13:11 Resp 18 03/01/19 13:11 BP 119/76 03/01/19 13:11 Pulse Ox Intake & Output 02/28/19 03/01/19 03/01/19 23:59 11:59 23:59 Other: Voiding Method Toilet Toilet m pt aox3 in nad with nasal congestion Assessment: 03/01/19 14:11 withdrawal sx's nasal congestion Plan: cont. detox increase fluids cont nasonex d/c in am
--- NOTE | 2019-03-01 17:37 | DS ---
Physical Exam: SUBJECTIVE: Patient seen and examined at the bedside. Stated that he wished to leave. Encouraged to stay. Continued to say that he wished to leave against medical advice. OBJECTIVE: Vital Signs Period Temp Pulse Resp BP Sys/[place] Pulse Ox Last 24 Hr 97.7 F-98.4 F 61-89 16-20 113-146/66-81 PHYSICAL EXAM GENERAL: The patient is awake, alert, and fully oriented, in no acute distress. HEAD: Normal with no signs of trauma. EYES: PERRL, extraocular movements intact, sclera anicteric, conjunctiva clear, noted strabismus. LUNGS: Breath sounds equal, clear to auscultation bilaterally, no wheezes, no crackles, no accessory muscle use. HEART: Regular rate and rhythm, S1, S2 without murmur, rub. ABDOMEN: Soft, nontender, nondistended, normoactive bowel sounds, obese abdomen. EXTREMITIES: 2+ pulses, warm, well-perfused, no edema. NEUROLOGICAL: Cranial nerves II through XII grossly intact. Normal speech, gait within normal limits. PSYCH: Normal mood, normal affect. SKIN: Warm, dry, normal turgor, no rashes or lesions noted. HOSPITAL COURSE: Date of Admission:02/25/19 Date of Discharge: 03/01/19 Minutes to complete discharge: 20 Discharge Summary Problems reviewed: Yes Reason For Visit: DETOX - LISET Current Active Problems GERD (gastroesophageal reflux disease) (Acute) Hospital Course: Shun Vazquez is a 48 year old male admitted for heroin detox with withdrawal symptoms. Patient was scheduled to complete detox in the morning, however patient is adamant that he no longer needs detox and wants to leave and said he will follow up with his rehab program upon leaving here. Patient was counseled on completing the detox program at this facility and was encouraged to stay. He was told that not completing the detox could lead to withdrawal symptoms. Patient stated he understood risks of leaving detox prior to completing it and decided to leave against medical advice. Patient was advised that if he has any further withdrawal symptoms or medical problems to present to the ER as soon as possible. Encouraged to follow up with his primary care provider for all of his ongoing medical problems. Patient acknowledged this and will be leaving the facility against medical advice. Declined offer of medication prescription. - Instructions Disposition: AGAINST MEDICAL ADVICE - Home Medications Comprehensive Discharge Medication List: Ambulatory Orders Furosemide 40 mg PO DAILY 02/17/19 Prednisone [Deltasone] 20 mg PO DAILY PRN 02/17/19 Ranitidine [Zantac -] 150 mg PO DAILY 02/17/19 Albuterol Sulfate Inhaler - [Ventolin HFA Inhaler -] 1 - 2 inh PO Q4H #1 inhaler 03/01/19 Aspirin [Aspirin EC] 81 mg PO DAILY #30 tablet. 03/01/19 Carvedilol [Coreg -] 3.125 mg PO Q12H #60 tablet 03/01/19 Docusate Sodium 100 mg PO BID #60 capsule 03/01/19 Fluticasone Prop 0.05% Nasal [Flonase -] 1 spray NS BID #1 spray 03/01/19 Furosemide [Lasix -] 40 mg PO DAILY #30 tablet 03/01/19 Hydrocortisone 1% Cream [Hytone 1% Cream -] 1 applic TP QID PRN #30 tube Lisinopril 10 mg PO DAILY #30 tablet 03/01/19 Loratadine 10 mg PO DAILY #30 tablet 03/01/19 Montelukast Sodium [Singulair] 10 mg PO HS #30 tablet 03/01/19 Naloxone HCl [Narcan] 4 mg NS ASDIR PRN #1 spray 03/01/19 Prescription Drug Monitoring Program (I-STOP) results: I-STOP not reviewed Problem List - Problems (1) Asthma Code(s): J45.909 - UNSPECIFIED ASTHMA, UNCOMPLICATED Qualifiers: Asthma severity: unspecified severity Asthma persistence: unspecified Asthma complication type: uncomplicated Qualified Code(s): J45.909 - Unspecified asthma, uncomplicated (2) Hypertension Code(s): I10 - ESSENTIAL (PRIMARY) HYPERTENSION Qualifiers: Hypertension type: unspecified Qualified Code(s): I10 - Essential (primary ) hypertension (3) Opioid dependence with withdrawal Code(s): F11.23 - OPIOID DEPENDENCE WITH WITHDRAWAL (4) GERD (gastroesophageal reflux disease) Code(s): K21.9 - GASTRO-ESOPHAGEAL REFLUX DISEASE WITHOUT ESOPHAGITIS This patient is new to me today: No Emergency Visit: No Critical Care patient: No - Discharge Referral Referred to [facility] No
[2019-03-01] MEDS: THIAMINE HCL 100 MG TABLET (FP) PO SCH (22:06)
[2019-03-01] MEDS: MONTELUKAST NA 10 MG TABLET PO SCH (22:06)
[2019-03-02] MEDS: ALBUTEROL SO4 8 GM HFA INHALER IH PRN (03:15)
[2019-03-02] MEDS ORDERED: METHADONE HCL 5 MG TABLET (FOR DETOX USE ONLY) PO ONE (06:00)
--- NOTE | 2019-03-02 09:06 | PN ---
[facility] Progress Note Note: pt did not leave yesterday. pt is still present on unit. pt will be d/c today.
--- NOTE | 2019-03-02 09:09 | DS ---
[facility] Detox Discharge Summary Admission Date: 02/25/19 Discharge Date: 03/02/19 - History Present History: Opioid Dependence - Physical Exam Results Vital Signs: Vital Signs Temperature 96 F L 03/02/19 06:31 Pulse Rate 64 03/02/19 06:31 Respiratory Rate 20 03/02/19 06:31 Blood Pressure 114/58 L 03/02/19 06:31 O2 Sat by Pulse Oximetry (%) Pertinent Admission Physical Exam Findings: pt arrived in withdrawals no s/s of withdrawals - Treatment Hospital Course: Detox Protocol Followed, Detoxed Safely, Responded well, Discharged Condition Good, Rehab Referral Accepted Patient has Accepted a Rehab Referral to: referral provided - Medication Discharge Medications: Ambulatory Orders Furosemide 40 mg PO DAILY 02/17/19 Prednisone [Deltasone] 20 mg PO DAILY PRN 02/17/19 Ranitidine [Zantac -] 150 mg PO DAILY 02/17/19 Albuterol Sulfate Inhaler - [Ventolin HFA Inhaler -] 1 - 2 inh PO Q4H #1 inhaler 03/01/19 Aspirin [Aspirin EC] 81 mg PO DAILY #30 tablet. 03/01/19 Carvedilol [Coreg -] 3.125 mg PO Q12H #60 tablet 03/01/19 Docusate Sodium 100 mg PO BID #60 capsule 03/01/19 Fluticasone Prop 0.05% Nasal [Flonase -] 1 spray NS BID #1 spray 03/01/19 Furosemide [Lasix -] 40 mg PO DAILY #30 tablet 03/01/19 Hydrocortisone 1% Cream [Hytone 1% Cream -] 1 applic TP QID PRN #30 tube Lisinopril 10 mg PO DAILY #30 tablet 03/01/19 Loratadine 10 mg PO DAILY #30 tablet 03/01/19 Montelukast Sodium [Singulair] 10 mg PO HS #30 tablet 03/01/19 Naloxone HCl [Narcan] 4 mg NS ASDIR PRN #1 spray 03/01/19 - Diagnosis (1) GERD (gastroesophageal reflux disease) Current Visit: Yes Status: Chronic Qualifiers: Esophagitis presence: without esophagitis Qualified Code(s): K21.9 - Gastro -esophageal reflux disease without esophagitis (2) Asthma Current Visit: Yes Status: Chronic Qualifiers: Asthma severity: unspecified severity Asthma persistence: unspecified Asthma complication type: uncomplicated Qualified Code(s): J45.909 - Unspecified asthma, uncomplicated (3) Hypertension Current Visit: Yes Status: Acute Qualifiers: Hypertension type: unspecified Qualified Code(s): I10 - Essential (primary ) hypertension (4) Opioid dependence with withdrawal Current Visit: Yes Status: Chronic - AMA Did Patient Leave Against Medical Advice: No
[2019-03-02 09:14] VITALS: BP 131/70; PULSE 72; TEMP 97.7
== END 2019-03-02 09:40 | disposition home or self-care (01) | DRG 773 ==
LOC: YASAS 12:46 → Y6N 17:16
PROVIDERS: ADMIT Allergy & Immunology; ATTEND Allergy & Immunology
PROC: HZ2ZZZZ Detoxification Services for Substance Abuse Treatment (ICD-10-PCS; principal; 2019-02-25)
DX: F11.23 Opioid dependence with withdrawal (principal); I10 Essential (primary) hypertension; K21.9 Gastro-esophageal reflux disease without esophagitis; J44.9 Chronic obstructive pulmonary disease, unspecified; J45.998 Other asthma; R09.81 Nasal congestion; L85.3 Xerosis cutis; Z98.61 Coronary angioplasty status